=== PATIENT | female | born 1945 | race Caucasian/White ===

== ENCOUNTER 2024-03-25 01:18 | Inpatient (IN) | payer MEDICARE, OTHER ==
[~2024-03-25] VITALS: Ht 162.6 cm; Wt 34.6 kg
[2024-03-25] VITALS (19 sets, daily range): BP systolic 84–155; BP diastolic 56–83
[2024-03-25] MEDS ORDERED: FentaNYL Citrate 50 MCG/ML 2 ML Injection IV ONE (02:15)
[2024-03-25] MEDS ORDERED: PYRIDOSTIGMINE PO (02:43)
[2024-03-25 03:42] LABS: BASOPHILS ABSOLUTE AUTO 0.03 K/mm3 (0.00-0.23); BASOPHILS PERCENT AUTO 1 % (0-2); EOSINOPHILS ABSOLUTE AUTO 0.03 K/mm3 (0.00-0.68); EOSINOPHILS PERCENT AUTO 1 % (0-6); Hematocrit 35.9 % (33.0-51.0); Hemoglobin 11.9 g/dL (11.5-16.0); IMMATURE GRAN ABSOLUTE AUTO 0.01 K/mm3 (0.00-0.10); IMMATURE GRAN PERCENT AUTO 0 % (0-1); LYMPHOCYTES ABSOLUTE AUTO 0.73 K/mm3 (0.84-5.20); LYMPHOCYTES PERCENT AUTO 14 % (21-46); MONOCYTES PERCENT AUTO 10 % (4-13); Mean Corpuscular HGB 32.7 pg (26.0-34.0); Mean Corpuscular HGB Conc 33.1 g/dL (31.5-36.5); Mean Corpuscular Volume 99 fL (80-100); Mean Platelet Volume 10.5 fL (9.1-12.4); NEUTROPHILS ABSOLUTE AUTO 3.88 K/mm3 (1.96-9.15); NEUTROPHILS PERCENT AUTO 75 % (41-73); Platelet Count 173 K/mm3 (150-400); RDW Coefficient Variation 12.3 % (11.7-14.2); RDW Standard Deviation 45.1 fL (35.1-46.3); Red Blood Cell Count 3.64 M/mm3 (3.80-5.20); White Blood Cell Count 5.18 K/mm3 (4.00-11.30)
[2024-03-25 04:17] LABS: Bun/Creatinine Ratio 53.1 (12.0-20.0); Calcium, Blood 9.1 mg/dL (8.5-10.1); Creatinine, Blood 0.57 mg/dL (0.40-1.00); Potassium, Blood 3.8 mmol/L (3.5-5.5)
[2024-03-25 04:23] LABS: International Normalized Ratio 0.97; Prothrombin Time Results 10.4 Sec (9.7-11.5)
[2024-03-25] MEDS ORDERED: FLU VACC TS2024-25(6MOS UP)/PF 45 MCG/0.5 ML SYRINGE IM ONE (04:45)
[2024-03-25 05:10] LABS: Source, Urine Foley catheter
[2024-03-25 05:20] LABS: Bilirubin, Urine Neg (Neg); Blood, Urine 1+ (Neg); Glucose Qualitative, Urine Neg (Neg); Ketones, Urine 2+ (Neg); Leukocyte Esterase, Urine Neg (Neg); Nitrite, Urine Neg (Neg); Protein, Urine 1+ (Neg); Specific Gravity, Urine 1.025 (1.003-1.022); Urobilinogen, Urine NORM (Normal)
[2024-03-25 05:24] LABS: Color, Urine Yellow (P-Yellow)
[2024-03-25 05:25] LABS: Appearance, Urine Clear (Clear)
[2024-03-25 05:26] LABS: Amorphous Light (0-Heavy); Bacteria Few /hpf; Mucus Mod (0-Heavy); Red Blood Cells, Urine 0-2 /hpf (0-2); Squamous Epithelial Cells Few /hpf (Few); White Blood Cells, Urine 0-2 /hpf (0-5)
[2024-03-25] MEDS ORDERED: Cymbalta20 MG PO (05:26)
[2024-03-25] MEDS ORDERED: FentaNYL Citrate 50 MCG/ML 2 ML Injection IV PRN (05:45)
[2024-03-25] MEDS ORDERED: NS 1,000 ML IV SCH (05:50)
[2024-03-25] MEDS ORDERED: Ondansetron HCl 2 MG / ML 2ML Vial IV PRN (06:20)
--- NOTE | 2024-03-25 07:22 | NUR ---
NOC SUMMARY- PT ARRIVED IN NO DISTRESS. PT DAUGHTER IN LAW PRESENT. PT HAS REMAINED NPO. CHG WIPE DOWN COMPLETED. PT CURRENTLY RESTING COMFORTABLY. CALL LIGHT IN REACH AND BED ALARM ON.
[2024-03-25] MEDS ORDERED: Docusate Sodium 100 MG Cap PO SCH (09:00)
--- NOTE | 2024-03-25 10:07 | NUR ---
ASSUMPTION OF CARE THIS RN ASSUMED CARE AT APPROX 0715. PATIENT ANSWERS ORIENTATION QUESTIONS APPROPRIATELY. CAN BE FORGETFUL, IS EASILY REORIENTED WITH REMINDERS. SON AT BEDSIDE. VSS. ON ROOM AIR, SATs >90%. RR EVEN, UNLABORED. R FEMORAL FX - PPP, BLE EQUAL IN LENGTH. REPORTS PAIN WITH MOVEMENT BUT DENIES NEED FOR PAIN MEDICATION AT THIS TIME. NPO SINCE MIDNIGHT. MD LANDEROS TO BEDSIDE THIS MORNING FOR ORTHO CONSULT - PLAN FOR REPAIR TODAY. ZAIDI CATHETER IN PLACE DRAINING YELLOW URINE TO GRAVITY. NS INFUSING PER EMAR. CALL LIGHT IN REACH. BED ALARM ON.
[2024-03-25 11:20] LABS: BASOPHILS ABSOLUTE AUTO 0.02 K/mm3 (0.00-0.23); BASOPHILS PERCENT AUTO 0 % (0-2); EOSINOPHILS PERCENT AUTO 0 % (0-6); Hematocrit 35.7 % (33.0-51.0); IMMATURE GRAN ABSOLUTE AUTO 0.03 K/mm3 (0.00-0.10); IMMATURE GRAN PERCENT AUTO 0 % (0-1); LYMPHOCYTES PERCENT AUTO 7 % (21-46); MONOCYTES ABSOLUTE AUTO 0.63 K/mm3 (0.16-1.47); MONOCYTES PERCENT AUTO 7 % (4-13); Mean Corpuscular HGB 32.2 pg (26.0-34.0); Mean Corpuscular HGB Conc 33.6 g/dL (31.5-36.5); Mean Corpuscular Volume 96 fL (80-100); Mean Platelet Volume 10.4 fL (9.1-12.4); NEUTROPHILS ABSOLUTE AUTO 8.15 K/mm3 (1.96-9.15); NEUTROPHILS PERCENT AUTO 86 % (41-73); Platelet Count 219 K/mm3 (150-400); RDW Coefficient Variation 12.3 % (11.7-14.2); Red Blood Cell Count 3.73 M/mm3 (3.80-5.20); White Blood Cell Count 9.53 K/mm3 (4.00-11.30)
[2024-03-25 11:40] LABS: Albumin, Blood 3.6 g/dL (3.4-5.0); Albumin/Globulin Ratio 1.2 (0.8-1.8); Bilirubin, Total 0.3 mg/dL (0.1-1.0); Bun/Creatinine Ratio 47.2 (12.0-20.0); Calcium, Blood 8.7 mg/dL (8.5-10.1); Creatinine, Blood 0.57 mg/dL (0.40-1.00); Globulin, Blood 2.9 g/dL (2.2-4.0); Potassium, Blood 3.6 mmol/L (3.5-5.5); Total Protein, Blood 6.5 g/dL (6.4-8.2)
[2024-03-25] MEDS ORDERED: CeFAZolin Sodium 2,000 MG in NS 100 ML IV SCH (16:10)
[2024-03-25] MEDS ORDERED: Lactated Ringer's 1,000 ML IV SCH (16:10)
[2024-03-25] MEDS ORDERED: Tranexamic Acid 1,000 MG in NS 100 ML IV SCH (16:10)
[2024-03-25] MEDS ORDERED: Chlorhexidine Mouth Care 15 ML UDC MT SCH (16:10)
--- NOTE | 2024-03-25 16:59 | NUR ---
PATIENT TRANSFERRED OFF UNIT FOR PROCEDURE
[2024-03-25] MEDS ORDERED: NS IV SCH (17:05)
[2024-03-25] MEDS ORDERED: TRANEXAMIC ACID IV SCH (17:05)
[2024-03-25] MEDS ORDERED: CeFAZolin Sodium 1,000 MG in NS 50 ML IV SCH (17:10)
[2024-03-25] MEDS ORDERED: CeFAZolin Sodium 1000 mg Vial ONE (17:12)
--- NOTE | 2024-03-25 17:27 | NUR ---
SHIFT SUMMARY PATIENT CURRENTLY OUT OF ROOM FOR SURGICAL PROCEDURE. NO ACUTE EVENTS PRIOR TO TRANSFER OFF UNIT. PATIENT SLEPT THROUGHOUT, EASILY AROUSABLE WITH VERBAL STIMULI. REMAINS FORGETFUL, EASILY ABLE TO REORIENT WITH REMINDERS. VSS. ON ROOM AIR. ADMINISTERED X1 DOSE OF 12.5MG IV FENTANYL PER EMAR FOR HIP PAIN WITH REPORTED RELIEF. ATTEMPTED TO HAVE A BM THROUGHOUT DAY - UNSUCCESSFUL. ENCOURAGING Q2H REPOSITIONING TOLERATED TO PREVENT SKIN BREAKDOWN. SON AT BEDSIDE THROUGHOUT DAY.
--- NOTE | 2024-03-25 17:32 | NUR ---
#20 PIV TO RIGHT FOREARM C/D/I.
--- NOTE | 2024-03-25 17:35 | NUR ---
INTO PACU PRE-OP.HISTORY AND ALLERGIES REVIEWED. PT AWAKE, ALERT, AND OREINTED TO SELF. PT APPEARS DISORIENTED AND CONFUSED. PT APPEARS ANXIOUS. PT REQUESTED THAT HER SON MIKAYLA BE CONTACTED PRE-OPERATIVELY. PT DID SIGN CONSENT THIS AM AND IT WAS WITNESSED BY HER PRIMARY RN.NPO STATUS CONFIRMED. PT RIGHT HIP IS TOO PAINFUL FOR CHLORHEXIDINE WIPES, TEDS, AND PAS STOCKINGS.
[2024-03-25] MEDS ORDERED: propofoL 20 ML IV ONE (17:47)
[2024-03-25] MEDS ORDERED: FentaNYL Citrate 50 MCG/ML 2 ML Injection ONE ×2 (17:47→19:10)
[2024-03-25] MEDS ORDERED: Bupivacaine 0.5% HCl 5 MG/ML 30MLVIAL ONE (17:48)
[2024-03-25] MEDS ORDERED: EpiNEPhrine 1 MG/1 ML 1ML Vial ONE (17:48)
[2024-03-25] MEDS ORDERED: Dexamethasone Sod Phos 10 MG/ML 1ML VIAL ONE (18:12)
[2024-03-25] MEDS ORDERED: Ondansetron HCl 2 MG / ML 2ML Vial ONE (18:33)
--- NOTE | 2024-03-25 18:47 | NUR ---
03/25/241846 TULIO HERNANDEZ 13ML BUPIVACAINE 0.5% W/EPI 1:200,000 WAS INJECTED TO OPSITE BY DR HERRERA AT 1822.
[2024-03-25] MEDS ORDERED: Ketorolac Tromethamine 30mg Vial ONE (19:25)
--- NOTE | 2024-03-25 20:00 | NUR ---
ARRIVAL PT ARRIVED BACK FROM PACU. VSS, ON RA.
[2024-03-26 04:01] VITALS: BP 110/60
--- NOTE | 2024-03-26 05:02 | NUR ---
SHIFT SUMMARY POD1 R HIP NAILING. DRESSINGS REMAIN C/D/I. SENSATION AND CIRCULATION REMAINS INTACT IN RLE. VSS. PT HAS SLEPT MOST OF THE NIGHT SINCE ARRIVING BACK FROM PACU. PT REMAINS PLEASENTLY CONFUSED T/O THE NIGHT, COOPERATIVE. PT EXPRESSED SIGNIFIGANT WORRY OVER HER RLE "NOT MOVING THE SAME". PT EDUCATED MULTIPLE TIMES ABOUT HER SURGERY AND THE TIME REQUIRED TO HEAL. PT TOLLERATED BEING REPOSITIONED. ZAIDI REMAINS IN PLACE, LOW URINE OUTPUT NOTED. PT HAS HAD IVF RUNNING T/O THE NIGHT PER ORDER. LOW PO INTAKE NOTED. PT NOTED TO NOT EAT OR DRINK ANYTHING ON HER OWN, PT REPORTS HER "VISION IS GOING" AND SHE "CANNOT SEE ANYTHING". SHE IS ABLE TO COMPLETE EATING AND DRINKING W/HANDS ON ASSISTANCE. OVERALL, NO ACUTE EVENTS NOTED. PLAN FOR PHYSICAL THERAPY AND ONGOING MEDICAL CARE.
[2024-03-26 07:06] VITALS: BP 127/64
[2024-03-26] MEDS ORDERED: Enoxaparin 40 MG/0.4 ML SYR SC SCH (09:00)
--- NOTE | 2024-03-26 09:29 | NUR ---
ASSUMPTION OF CARE THIS RN ASSUMED CARE AT APPROX 0715. PATIENT SLEEPING DURING INITIAL INTERACTION, EASILY AROUSABLE WITH VERBAL STIMULI. UPON WAKING, UNABLE TO RECALL LOCATION OR EVENTS LEADING TO ADMISSION. ABLE TO REPORT NAME AND DATE OF . SPEECH SOFT, DIFFICULTY FOLLOWING COMMANDS AND COMMUNICATING NEEDS. REPORTS VISION DIFFICULTIES LEADING TO FREQUENT FALLS AT HOME, DIFFICULTY COMPLETING TASKS INDEPENDENTLY. WEARS GLASSES THAT ARE AT HOME. POD 1 R HIP NAILING - X3 AQUACEL DRESSINGS C/D/I. DENIES PAIN AT THIS TIME. TOLERATING PO INTAKE. AWAITING FIRST POST OP AMBULATION WITH PHYSICAL THERAPY. CALL LIGHT IN REACH. BED ALARM ON. VISITING WITH FAMILY AT BEDSIDE.
--- NOTE | 2024-03-26 10:16 | NUR ---
MD ROLDAN IN ROOM FOR MORNING ROUNDS. PATIENT HAS IV MEDICATION FOR PAIN MANAGEMENT ONLY. MD ROLDAN TO REVIEW CHART AND PLACE ORDERS FOR PO MEDICATION.
[2024-03-26] MEDS ORDERED: OxyCODONE HCL 5 MG TAB PO PRN (11:30)
[2024-03-26] MEDS ORDERED: Acetaminophen 325 MG TABLET PO PRN (11:30)
[2024-03-26 15:58] VITALS: BP 126/62
--- NOTE | 2024-03-26 17:58 | NUR ---
SHIFT SUMMARY NO ACUTE EVENTS SINCE PREVIOUS DOCUMENTATION. MENTATION CONTINUES TO WAX AND WANE - REQUIRING FREQUENT REMINDERS AND CUES FROM STAFF. VSS. ON ROOM AIR. RR EVEN, UNLABORED. WORKED WITH PHYSICAL THERAPY TODAY - UP TO BSC OR CHAIR WITH 1P ASSIST ZOHAIBWCECLI. PAIN MANAGED PER EMAR. ENCOURAGING PO INTAKE THROUGHOUT DAY DECREASED APPETITE NOTED. ZAIDI CATHETER REMOVED - PATIENT VOIDED THIS EVENING. X1 SMALL BM. CALL LIGHT IN REACH. WILL CONTINUE TO MONITOR AND REPORT TO ONCOMING RN.
[2024-03-26 20:37] VITALS: BP 111/63
[2024-03-27 05:41] VITALS: BP 127/72
--- NOTE | 2024-03-27 05:55 | NUR ---
SHIFT SUMMARY NOC. PT POD 2 FOR RIGHT FEMORAL FRACTURE REPAIR WITH RODDING. PT A/O X3, FORGETFUL AND REDIRECTABLE. BED ALARM SET FOR SAFETY. PT MEDICATED FOR PAIN WITH REPORTED RELIEF. AQUACEL X3 C/D/I. PT VOIDING URINE AND TOLERATING PO INTAKE. BED IN LOWEST POSITION, CALL LIGHT IN REACH.
[2024-03-27 07:09] VITALS: BP 138/71
[2024-03-27 14:56] VITALS: BP 152/69
--- NOTE | 2024-03-27 17:03 | NUR ---
SUMMARY: PT IS POD2 R HIP NAILING. ALERT, ORIENTED X1 TODAY, PT VERY FORGETFUL AND HAS SHORT TERM MEMORY LOSS. NEEDED MANY REMINDERS. VSS. PT UP WITH 1 ASSIST, MOVES WELL. SURGICAL SITE WNL. NO ACUTE CONCERNS, PLAN IS SNF TOMORROW. BED ALARM SET
[2024-03-27 19:58] VITALS: BP 118/69
[2024-03-28 03:37] VITALS: BP 126/73
--- NOTE | 2024-03-28 05:58 | NUR ---
SHIFT SUMMARY NOC. PT POD 3 FOR RIGHT FEMORAL FX REPAIR WITH RODDING. PT A/O X2 THIS SHIFT, PT FORGETFUL AND NEEDED MORE REDIRECTION THIS SHIFT. BED ALARM SET FOR SAFETY. PT MEDICATED FOR PAIN WITH REPORTED RELIEF OF SX. AQUACEL X3 C/D/I. PT VOIDING URINE AND TOLERATING PO FLUID INTAKE. PT REQUESTED TO SEE SON "ESE", ESE CAME IN FOR SHORT VISIT EARLY THIS AM. BED IN LOWEST POSITION, CALL LIGHT IN REACH.
[2024-03-28 08:11] VITALS: BP 118/64
[2024-03-28 09:39] LABS: SARS-Cov-2 (COVID-19) PCR, MMC NEGATIVE (NEGATIVE)
--- NOTE | 2024-03-28 10:23 | NUR ---
MORNING NOTE ASSUMED CARE AT APPROX 0715. PATIENT ALERT AND ORIENTED X1 - REQUIRES FREQUENT REORIENTATION TO DATE/TIME, LOCATION, EVENTS LEADING TO ADMISSION, PLAN OF CARE. BED/CHAIR ALARM. WORKED WITH PHYSICAL THERAPY THIS MORNING - UP WITH 1P ASSIST ZOHAIBWCECIL. AMBULATED IN HALLWAY. CURRENTLY SITTING IN CHAIR. VSS. X3 AQUACEL DRESSINGS TO R HIP WITH SCANT SEROSANGUINOUS DRAINAGE. DENIES PAIN. DECREASED APPETITE NOTED - ENCOURAGING PO INTAKE. VOIDING. PLAN TO DC TO SNF TODAY.
--- NOTE | 2024-03-28 12:45 | NUR ---
REPORT GIVEN TO TRACY PATTERSON TO ASSUME CARE AT THIS TIME
--- NOTE | 2024-03-28 14:47 | NUR ---
ATTEMPTED TO CALL REPORT TO [facility], NO ANSWER AND MESSAGE LEFT
--- NOTE | 2024-03-28 14:51 | NUR ---
ASSUMED PT CARE AT ABOUT 1230
[2024-03-28 15:06] VITALS: BP 113/68
--- NOTE | 2024-03-28 15:24 | NUR ---
REPORT PASSED TO RN AT [facility] AT THIS TIME
--- NOTE | 2024-03-28 16:01 | NUR ---
PT LEFT UNIT WITH TRANSPORT AT THIS TIME, SON TOOK PT BELONGINGS. IV DC'D WNL, TIPINTACT
== END 2024-03-28 15:58 | DRG 480 ==
LOC: ER 01:18 → SURS 04:42 → ERHOLD 04:42 → SURS 05:22
PROVIDERS: Family Medicine Adult Medicine; Internal Medicine; Orthopaedic Surgery; Student in an Organized Health Care Education/Training Program; ADMIT Internal Medicine
PROC: 0QH634Z Insertion of Internal Fixation Device into Right Upper Femur, Percutaneous Approach (ICD-10-PCS; principal; 2024-03-25 07:30)
DX: S72.001A Fracture of unspecified part of neck of right femur, initial encounter for closed fracture (principal); E43 Unspecified severe protein-calorie malnutrition; Z68.1 Body mass index [BMI] 19.9 or less, adult; W18.30XA Fall on same level, unspecified, initial encounter; S72.21XA Displaced subtrochanteric fracture of right femur, initial encounter for closed fracture; F32.A Depression, unspecified; E86.0 Dehydration; Z66 Do not resuscitate; Z79.899 Other long term (current) drug therapy
CPT/HCPCS: 36415; 51702; 73552; 80048; 80053; 81001; 85025; 85610; 85730; 90656; 96374-59; 97116; 97162; 97165; 97530; 97535; 99285-25; A9270; C1713; G0008; J0171; J0690; J1100; J1885; J2405; J2704; J3010; J7030; J7120; U0002

== ENCOUNTER → 2024-08-29 | Outpatient (CLI) | payer MEDICARE, OTHER ==
[~2024-08-29] MED LIST: Cymbalta20 MG PO; PYRIDOSTIGMINE PO
== END ==
LOC: LAB 14:36 → LAB SHORT 14:36
DX: R35.0 Frequency of micturition (principal)
CPT/HCPCS: 87086